=== PATIENT | male | born 1955 | race Caucasian/White ===

== ENCOUNTER 2021-08-09 10:42 | Emergency (ER) | payer MEDICARE, BC, SELFPAY ==
[2021-08-09 11:27] VITALS: BP 153/82; PULSE 59; RESP 16; TEMP 36.1; O2SAT 99; BMI 23.5
--- NOTE | 2021-08-09 12:29 | ED.EYEPROB ---
HPI - Eye Problem General Chief complaint: Eye Problems Stated complaint: DETACHED RETINA Time Seen by Provider: 08/09/21 11:50 Source: patient Mode of arrival: ambulatory Limitations: no limitations History of Present Illness HPI Narrative: Patient does have history of ocular migraine to get floaters during the oral phase started noticing increased floaters in left eye over the 3 days without any significant headache today an hour prior to arrival noticed spider web like floaters in the 3 o'clock position left eye which lasted for 5 minutes without any scintillations or black hole no pain in the left eye at this time patient does not no vision loss Related Data Allergies Allergy/AdvReac Type Severity Reaction Status Date / Time penicillin V Allergy Unknown Verified 06/09/19 00:00 Review of Systems Review of Systems: Yes all other systems are reviewed and are negative [facility] Past Medical History Medical History (Updated 08/09/21 @ 12:30 by Jaxson Nelson MD) Floater, vitreous Ocular migraine Surgical History H/O hernia repair Social History Social History Advance Directives: No Advance Directives Information Provided: No Physical Exam Vital Signs: Vital Signs: Last Vital Signs Temp 97.0 F 08/09/21 11:27 Pulse 59 08/09/21 11:27 Resp 16 08/09/21 11:27 BP 153/82 H 08/09/21 11:27 Pulse Ox 99 08/09/21 11:27 Body Mass Index 23.5 Const: General: cooperative and healthy appearing Eyes: Pupils: Equal, round and reactive pupils present EOM: EOMs intact bilaterally Direct Ophthalmoscopy: normal light reflex, no papilledema, fundi normal bilaterally, anterior chamber normal, No retinal abnormality and No vascular abnormality Resp: Effort & Inspection: normal respiratory effort Auscultation: clear to auscultation bilaterally Cardio: Rate: regular rate Rhythm: regular rhythm Heart sounds: S1 normal heart sound present and S2 normal heart sound present Neuro: Cranial nerves: Yes Equal, round and reactive pupils present MDM - Eye Problem MDM Narrative Medical decision making narrative: Patient's symptoms likely from ocular migraine no signs of retinal detachment was seen patient advised to avoid straining follow with Dr. Rust to report back to the ER if any loss of vision or scintillations around the floaters Procedures Procedure Narrative Procedure Narrative: Ultrasound of both eyes: Normal anterior chamber , lens normal in position normal retina no detachment was seen, pictures were shared with Dr. Rust Discharge Plan Discharge Clinical Impression: Floater, vitreous Qualifiers: Laterality: left Qualified Code(s): H43.392 - Other vitreous opacities, left eye Patient Disposition: Home, Self-Care Instructions: Visual Floaters (ED) Additional Instructions: Do not over strain See Dr. Rust next week as scheduled Report to the ER if in if he notices worsening of floaters with light flashing or increased pain/ blindness
== END 2021-08-09 12:36 | disposition home or self-care (01) ==
PROVIDERS: Emergency Provider Internal Medicine; PCP Internal Medicine
DX: H43.392 Other vitreous opacities, left eye (principal); H33.22 Serous retinal detachment, left eye; Z79.899 Other long term (current) drug therapy
CPT/HCPCS: 99283

== ENCOUNTER 2024-06-27 18:42 | Emergency (ER) | payer MEDICARE, BC, SELFPAY ==
--- NOTE | ~2024-06-27 | US_ITS ---
EXAMINATION: US TRIPLEX LOWER EXTREMITY, RIGHT CLINICAL INFORMATION: Pain COMPARISON: None available. TECHNIQUE: Color-flow triplex imaging with spectral analysis and compression Doppler were performed on the right lower extremity. FINDINGS: Respiratory variation, normal compression and augmented flow are noted throughout the right lower extremity. The visualized common femoral vein, superficial femoral vein, profunda femoral vein, popliteal vein and midcalf peroneal and posterior tibial venous segments show no evidence of deep venous thrombosis. There is no Benitez's cyst. Small 0.7 x 0.3 x 0.4cm lymph node in the thigh. US/US venous duplex LE RT IMPRESSION: No evidence of deep venous thrombosis involving the right lower extremity. Electronically signed by: Jenna Cartwright MD 06/27/2024 07:53 PM EDT
--- NOTE | 2024-06-27 18:51 | ED.GENADULT ---
HPI - General Adult General Stated complaint: blood clot rt leg? Related Data Allergies Allergy/AdvReac Type Severity Reaction Status Date / Time penicillin V Allergy Unknown Unknown Verified 06/27/24 18:53 REPLACED BY [facility] Past Medical History Medical History (Updated 08/10/21 @ 00:01 by Helen Allen) Ocular migraine Floater, vitreous Surgical History H/O hernia repair Course Course Course Narrative: RME, this is a rapid medical exam performed by Louis Garrison please refer to primary provider for complete H&P- 68 year old male presents for evaluation of right calf pain that has since radiated up to the right thigh. He first noticed the pain in the right tamar last night after running around playing soccer. That pain has resolved and is now in the right thigh. Plan for labs and an ultrasound of the right leg Discharge Plan Discharge Print Language: Cuban
[2024-06-27 18:52] VITALS: BP 162/72; PULSE 66; RESP 18; TEMP 36.7; O2SAT 99; BMI 23.2
[2024-06-27 19:11] LABS: Basophils Absolute Auto 0.1 X10*3/uL (0.0-0.2); Basophils Percent Auto 0.8 % (0-2); Hemoglobin 15.8 g/dl (14.0-18.0); Imm Gran Abs Auto 0.02 X10*3/uL (0.00-0.03); Imm Gran Pct Auto 0.3 % (0.0-0.4); MANUAL DIFF FLAG SCAN; Mean Corpuscular HGB Conc 35.7 g/dl (31.0-36.0); Mean Corpuscular Hemoglobin 31.2 pg (27.0-33.0); PLT CLUMP 1; Red Blood Count 5.06 X10*6/uL (4.60-5.80); SCAN SMEAR FLAG 1
[2024-06-27 19:13] LABS: Eosinophils Absolute Auto 0.2 X10*3/uL (0.0-0.4); Eosinophils Percent Auto 3.3 % (0-4); Hematocrit 44.3 % (42.0-52.0); Lymphocytes Absolute Auto 1.8 X10*3/uL (1.2-4.9); Lymphocytes Percent Auto 30.2 % (20-40); Mean Corpuscular Volume 87.5 fL (80.0-98.0); Mean Platelet Volume 8.5 fL (9.4-12.4); Monocytes Absolute Auto 0.4 X10*3/uL (0.1-1.2); Monocytes Percent Auto 7.3 % (2-11); Neutrophils Absolute Auto 3.5 x10*3/uL (2.0-8.3); Neutrophils Percent Auto 58.1 % (45-73)
[2024-06-27 19:35] LABS: Alanine Aminotransferase 27 U/L (0-40); Albumin Level 4.3 g/dL (3.5-5.0); Alkaline Phosphatase 89 U/L (39-117); Anion Gap 11 (12-20); Aspartate Amino Transferase 29 U/L (5-37); Bilirubin Total 0.6 mg/dL (0.0-1.0); Blood Urea Nitrogen 10 mg/dL (9-16); Calcium 9.5 mg/dL (8.4-10.2); Carbon Dioxide 27 mmol/L (22-29); Chloride 107 mmol/L (96-108); Creatinine Clr Calc Pharmacy 74.7; Estimated Glomerular Filt Rate > 60; Glucose Random 102 mg/dL (60-115); Lipase 21 U/L (8-78); Potassium 3.7 mmol/L (3.3-5.1); Sodium 141 mmol/L (135-145); Total Protein 6.9 g/dL (6.5-8.0)
[2024-06-27 20:02] LABS: Platelet Count 166 X10*3/uL (160-400)
[2024-06-27 23:07] LABS: SLIDE REVIEW VERIFIED
== END 2024-06-27 21:59 | disposition left against medical advice (07) ==
PROVIDERS: Physician Assistant; Emergency Provider Emergency Medicine; PCP Physician Assistant
DX: R60.0 Localized edema (principal); Z79.899 Other long term (current) drug therapy
CPT/HCPCS: 36415; 80053; 82550; 83690; 83735; 85025; 93971; 99281

== ENCOUNTER 2025-06-26 10:24 | Day surgery (SDC) | payer MEDICARE, BC, SELFPAY ==
--- OUTSIDE RECORDS SUMMARY | 2025-05-28 09:55 | XMS_ITS ---
Author Organization [facility] Address [address] [place] [address] Care Team Providers Care Housekeeper Nanny Name Role Phone BERNA SMITH M.D. Primary Care Provider Jose Manuel Richards Jr Allergies Allergen (clinical drug ingredient) Drug/Non Drug Allergy documented on EMR Reaction Allergy Type Onset Date Status Sulfa upset stomach Drug Allergy Act devan Penicillin Unknown Drug Allergy Active REASON FOR VISIT Patient presents today for a colon screening Medications Medication SIG (Take, Route, Frequency, Duration) Notes Start Date End Date Status Vitamin B-12 100 MCG as directed Orally Active Fish Oil 1000 MG 1 capsule Orally Thr ee times a day Active Vitamin C 500 MG as directed Orally Active Probiotic 250 MG as directed Orally Active Red Yeast Rice 600 MG as directed Orally Active Fiber 625 MG 2 tablets as needed Orally Three times a day Active Flax Seeds Active Vitamin D-3 25 MCG (1000 UT) 1 capsule Orally Once a day pro Active Immunizations Vaccine Route Administration Date Status Comme nts Influenza Unknown 05/28/2025 Refused Problems Problem Type SNOMED Code ICD Code Onset Dates Problem Status W/U Status Risk Notes Problem Diverticulitis o f large intestine without perforation or abscess without bleeding (K57.32) Active confirmed Vital Signs Temperature 97.8 degrees Fahrenheit 05/28/20 25 Blood pressure systolic 001 mm Hg 05/28/20 25 Blood pressure diastolic 01 mm Hg 025 Height 67 in 05/28/2025 Weight 141 lbs 05/28/2025 BMI 22.08 kg/m2 05/28/2025 Encounters Encounter Location Date Provider Diagnosis [facility] [address] [place] [address] 05/28/2025 Jose Manuel Carmen Jr Diverticulitis of large intestine without perforation or abscess without bleeding K57.32 Assessments Encounter Date Diagnosis (ICD Code) Assessment Notes Treatment Notes Treatment Clinical Notes Section Notes 05/28/2025 Diverticulitis of large intestine without perforation or abscess without bleeding (ICD-10 - K57.32) We discussed diverticulitis today. We discussed further evaluation with colonoscopy. We discussed a high-fiber diet. He is encouraged to follow this. We discussed indications for antibiotics today. He is advised to call with recurrent symptoms. We will arrange for colonoscopy at his convenience. Examination of his left inguinal area did not reveal definite area of recurrent hernia. We will review his CT scan and if he has recurrent symptoms, surgical referral will be arranged. He is advised to stop supplements 1 week before the procedure. Plan Of Treatment Future Test Test Name Order Date COLONOSCOPY 05/28/2025 Next Appt Details Follow Up: 1 Year, Reason: Provider Name:Jose Manuel kimble Jr, 06/26/2025 11:40:00 AM, [address] [place] [address], [id number], Progress Notes * JEAN LILLY CDOB:[birth year] (69 yo M)Acc No.[id number]:05/28/2025 Progress Notes Patient: JEAN RAMIREZ Provider: Josh Carmen MD :1955 A ge:69 Y S ex:Male Date:05/28/2025 Address:[address] [place], [place] [id number] Pcp:BERNA SMITH M.D. Subjective: * Chief Complaints: * 1 . Patient presents today for a colon screening. * HPI: N ew symptom(s): Jean is a pleasant 69-year-old man seen today in consultation. He has had 2 episodes of diverticulitis in the last 6 to 8 months. The first 1 required antibiotic treatment and CT scanning was reportedly done confirming the diagnosis. The second episode occurred about 3 months ago and did not require antibiotics and responded to conservative therapy with diet, liquids x 24 to 48 hours. Since that time he has had no recurrence of his diverticulitis. He reports bowel movements are normal, without blood, although he does have some left lower quadrant pain which he thinks may be related to previous hernia surgery for a left inguinal hernia. He has no complaints of a bulge in this area but did have an inguinal hernia repair on the left side about 2013. Previous colonoscopy in January 2017 to the terminal ileum showed sigmoid diverticulosis. We reviewed this today. * ROS: G eneral/Constitutional: Change in appetite d enies. F atigue d enies. ? E NT: Patient denies d ifficulty swallowing. R espiratory: Patient denies s hortness of breath. C ardiovascular: Patient denies c hest pain. G astrointestinal: Comments S [facility] for details. G enitourinary: Difficulty urinating d enies. I ncontinence d enies. M usculoskeletal: Patient denies m uscle aches. S kin: Patient denies p ruritis. N eurologic: Patient denies l ow back pain. P sychiatric: Patient denies m ental or physical abuse. * Medical History: C olonoscopy 01/22, diverticulosis, 10-year follow-up, Arthralgia, Diverticulitis, Hyperlipidemia, Elevated blood pressure. * Surgical History: k nee surgery , tonsillectomy , inguinal hernia repair 10/2014. * Family History: F ather: . M other: . The patient has a positive family history for diverticulosis sister and two brothers living. NO family history of liver cancer or colon cancer. * Social History: T obacco Use: T obacco Use/Smoking P atient is a: nonsmoker. D rugs/Alcohol: A lcohol Screen P oints: 4, Interpretation: Positive. M iscellaneous: M arital status: . Occupation: retired. * Medications: T aking Probiotic 250 MG Capsule as directed Orally , Taking Red Yeast Rice 600 MG Capsule as directed Orally , Taking Fiber 625 MG Tablet 2 tablets as needed Orally Three times a day , Taking Flax Seeds , Taking Vitamin D-3 25 MCG (1000 UT) Capsule 1 capsule Orally Once a day , Notes to Pharmacist: pro, Taking Vitamin C 500 MG Capsule as directed Orally , Taking Vitamin B-12 100 MCG Tablet as directed Orally , Taking Fish Oil 1000 MG Capsule 1 capsule Orally Three times a day , Discontinued Minocycline HCl - for roseasa , Discontinued Colyte with Flavor Packs 240 GM Solution Reconstituted As directed Orally Over the specified time. , Medication List reviewed and reconciled with the patient * Allergies: S ulfa: upset stomach, Penicillin. Objective: * Vitals: W t:141lbs, Ht: 67 in, BMI:22.08Index, BP:001/01mm Hg, Temp:97.8, Wt-k.96. * Examination: G eneral Examination: GENERAL APPEARANCE: i n no acute distress. HEAD: n ormocephalic. EYES: s clera non-icteric. ORAL CAVITY: m ucosa moist. NECK/THYROID: n o lymphadenopathy. SKIN: a nicteric. HEART: S 1, S2 normal, no murmurs. LUNGS: c lear to auscultation bilaterally. CHEST: n ormal shape and expansion. ABDOMEN: s oft, nontender, nondistended, bowel sounds present,no organomegaly. No left inguinal hernia is palpable on provocative maneuvers.. EXTREMITIES: n o clubbing, cyanosis, or edema. PSYCH: c ognitive function intact. Assessment: * Assessment: 1. D iverticulitis of large intestine without perforation or abscess without bleeding - K57.32 (Primary) We discussed diverticulitis today. We discussed further evaluation with colonoscopy. We discussed a high-fiber diet. He is encouraged to follow this. We discussed indications for antibiotics today. He is advised to call with recurrent symptoms. We will arrange for colonoscopy at his convenience. Examination of his left inguinal area did not reveal definite area of recurrent hernia. We will review his CT scan and if he has recurrent symptoms, surgical referral will be arranged. He is advised to stop supplements 1 week before the procedure. Plan: * Treatment: * Immunizations: Influenza (Not administered - Refused: Patient decision) * Procedure Codes: 3 017F COLORECTAL CA SCREEN DOC REV, 1036F TOBACCO NON-USER, G9744 PATIENT NOT ELIG D/T ACTIVE DX HTN * Preventive Medicine: Screenings: F all Risk Screening F all Risk Assessment: N o falls in the past year, S creening: N o falls in the past year, A ssessment: N ot performed, no reason specified, P ann of Care: N ot documented, no reason specified. * Follow Up: 1 Year * * Sign off status: Completed true * Provider: Josh Carmen MD Date: 05/28/2025 Generated for Printi wyatt/Morris/eTransmitting on: 05/29/2025 12:31 PM EDT History and Physical Notes * HPI (History of Present Illness) Category Sub-Category Detail Notes Category Not es New symptom(s) Jean is a pleasant 69-year-old man seen today in consultation. He has had 2 episodes of diverticulitis in the last 6 to 8 months. The first 1 required antibiotic treatment and CT scanning was reportedly done confirming the diagnosis. The second episode occurred about 3 months ago and did not require antibiotics and responded to conservative therapy with diet, liquids x 24 to 48 hours. Since that time he has had no recurrence of his diverticulitis. He reports bowel movements are normal, without blood, although he does have some left lower quadrant pain which he thinks may be related to previous hernia surgery for a left inguinal hernia. He has no complaints of a bulge in this area but did have an inguinal hernia repair on the left side about 2013. Previous colonoscopy in January 2017 to the terminal ileum showed sigmoid diverticulosis. We reviewed this today. Examination Category Sub-Category Detail Notes Category Not es General Examination GENERAL APPEARANCE: in no acute di stress HEAD: normocephalic EYES: sclera non-icteric NECK/THYROID: no lymphadenopathy HEART: S1, S2 normal, no mu rmurs CHEST: normal shape and exp ansion LUNGS: clear to auscultatio n bilaterally ABDOMEN: soft, nontender, non distended, bowel sounds present, no organomegaly. No left inguinal hernia is palpable on provocative maneuvers. SKIN: anicteric EXTREMITIES: no clubbing, cyanosi s, or edema PSYCH: cognitive function i ntact ORAL CAVITY: mucosa moist
--- OUTSIDE RECORDS SUMMARY | 2025-05-29 12:31 | XMS_ITS | Clinical Summary ---
Author Organization [facility] Address [address] [place] [id number] Phone Care Team Providers Care Case Reviewer Name Role Phone Jac Escalante Primary Care Provider [phone] Encounters Date Type Department Care Team Description 04/16/2025 11:14 AM EDT - 04/16/2025 11:59 PM EDT Hospital Encounter [facility] [address] [place] [address] Jac Escalante PA Discharge Disposition: Home or Self Care 04/16/2025 Transcribe Orders [facility] [address] [place] [address] Jac Escalante PA Well adult exam 04/16/2025 Transcribe Orders [facility] [address] [place] [address] Jac Escalante PA Well adult exam; Hyperlipidemia, unspecified hyperlipidemia type; Hypertension, essential from Last 3 Months Social History Tobacco Use Types Packs/Day Years Used Date Smoking Tobacco: Never Assessed Education Answer Date Recorded Are you interested in more education? Not on terrence e 04/16/2025 Are you concerned about learning? Not on file 04/16/2025 No 04/16/2025 No 04/16/2025 Digital Access Answer Date Recorded No 04/16/2025 No 04/16/2025 Reliable internet access at home? Not on file 04/16/2025 Device with a working camera? Not on file Sex and Gender Information Value Date Recorded Sex Assigned at Not on file Legal Sex Male 3:10 PM EDT Gender Identity Not on file Sexual Orientation Not on file Plan of Treatment Not on file Medical Devices Not on file Procedures Procedure Name Priority Date/Time Associated Diagnosis Comments HEMOGLOBIN A1C Routine 04/16/2025 11:29 AM EDT Well adult exam Hyperlipidemia, unspecified hyperlipidemia type Hypertension, essential COMPREHENSIVE METABOLIC PANEL Routine 04/16/2025 11:29 AM EDT Well adult exam Hyperlipidemia, unspecified hyperlipidemia type Hypertension, essential LIPID PANEL Routine 04/16/2025 11:29 AM EDT Well adult exam Hyperlipidemia, unspecified hyperlipidemia type Hypertension, essential 25-OH VITAMIN D Routine 04/16/2025 11:29 AM EDT Well adult exam Hyperlipidemia, unspecified hyperlipidemia type Hypertension, essential PSA (SCREENING) Routine 04/16/2025 11:29 AM EDT Well adult exam CBC AND DIFFERENTIAL Routine 04/16/2025 11:29 AM EDT Well adult exam Hyperlipidemia, unspecified hyperlipidemia type Hypertension, essential from Last 3 Months Results * Comprehensive metabolic panel (04/16/2025 11:29 AM EDT) SODIUM 135 133 - 146 mmol/L [facility] POTASSIUM 4.1 3.3 - 5.1 mmol/L [facility] CHLORIDE 99 96 - 108 mmol/L [facility] CO2 26 21 - 35 mmol/L [facility] BUN 13 6 - 19 mg/dL [facility] CREATININE 0.80 0.5 - 1.5 mg/dL [facility] GLUCOSE 87 70 - 99 mg/dL [facility] ALBUMIN 4.5 3.9 - 4.8 g/dL [facility] TOTAL PROTEIN 7.1 6.5 - 8.0 g/dL [facility] CALCIUM 9.4 8.4 - 10.3 mg/dL [facility] ALKALINE PHOSPHATASE 99 39 - 117 U/L [facility] TOTAL BILIRUBIN 0.6 0.0 - 1.2 mg/dL [facility] AST 24 0 - 37 U/L [facility] ALT 28 0 - 40 U/L [facility] GLOBULIN 2.6 1 - 4.8 g/dL [facility] EGFR 95 >59 mL/min/1.7 3m2 [facility] Comment:Estimated glomerular filtration rate calculated using the CKD-EPI refit equation. ANION GAP 14 10 - 20 mmol/L [facility] Blood 04/16/2025 11:2 9 AM EDT 04/16/2025 11:32 AM EDT us Jac [facility] BLOOD ORDERABLES Final Res ult Performing Organization Address City/[facility]/ZIP Co de Phone Number [address] [address] * 25-OH vitamin D (04/16/2025 11:29 AM EDT) 25 OH VIT D (TOTAL) 51 30 - 60 ng/mL [facility] Blood 04/16/2025 11:2 9 AM EDT 04/16/2025 11:32 AM EDT us Jac [facility] BLOOD ORDERABLES Final Res ult Performing Organization Address City/[facility]/ZIP Co de Phone Number [address] [address] * CBC and differential (04/16/2025 11:29 AM EDT) WBC 6.08 4.00 - 11.00 K/uL [facility] RBC 5.29 4.50 - 5.90 M/uL [facility] HGB 16.1 13.5 - 17.5 g/dL [facility] HCT 47.6 41.0 - 53.0 % [facility] PLT 178 150 - 450 K/uL [facility] MCV 90.0 80.0 - 100.0 fL [facility] MCH 30.4 27.0 - 31.0 pg [facility] MCHC 33.8 32.0 - 36.0 g/dL [facility] RDW 12.4 11.5 - 14.5 % [facility] MPV 9.2 8.4 - 12.0 fL [facility] NRBC 0.00 0.00 /100 WBCs [facility] ABSOLUTE NRBC 0.00 0.00 K/uL [facility] DIFF METHOD Auto [facility] NEUTS 66.6 48.0 - 76.0 % [facility] LYMPHS 22.4 18.0 - 41.0 % [facility] MONOS 7.9 4.0 - 11.0 % [facility] EOS 2.5 0.0 - 5.0 % [facility] BASOS 0.3 0.0 - 1.5 % [facility] Granulocytes, immature (%) 0.3 0.0 - 0.9 % [facility] ABSOLUTE NEUTS 4.05 1.92 - 7.60 K/uL [facility] ABSOLUTE LYMPHS 1.36 0.72 - 4.10 K/uL [facility] ABSOLUTE MONOS 0.48 0.16 - 1.10 K/uL [facility] ABSOLUTE EOS 0.15 0.00 - 0.50 K/uL [facility] ABSOLUTE BASOS 0.02 0.00 - 0.15 K/uL [facility] Granulocytes, immature 0.02 0.00 - 0.09 K/uL [facility] Blood 04/16/2025 11:2 9 AM EDT 04/16/2025 11:32 AM EDT us Jac [facility] BLOOD ORDERABLES Final Res ult [facility] [address] [place], [place] [id number] * PSA (screening) (04/16/2025 11:29 AM EDT) PSA 2.29 0 - 4.00 ng/mL [facility] Comment: Test Methodology Jyoti [id number] Patient results determined by assays using different manufacturers or methods may not be comparable. Blood 04/16/2025 11:2 9 AM EDT 04/16/2025 11:32 AM EDT us Jac [facility] BLOOD ORDERABLES Final Res ult Performing Organization Address City/[facility]/ZIP Co de Phone Number [address] [address] * Hemoglobin A1c (04/16/2025 11:29 AM EDT) HEMOGLOBIN A1C 5.1 4.3 - 5.8 % [facility] Blood 04/16/2025 11:2 9 AM EDT 04/16/2025 11:33 AM EDT us Jac [facility] BLOOD ORDERABLES Final Res ult Performing Organization Address [facility] Co de Phone Number [address] [address] * (ABNORMAL) Lipid panel (04/16/2025 11:29 AM EDT) HDL 43 mg/dL [facility] Comment: Interpretation <40 mg/dL: Low HDL cholesterol (major risk factor for CHD) Greater than or equal to 60 mg/dL: High HDL cholesterol ( negative risk factor for CHD) HDL - cholesterol is affected by a number of factors, e.g. smoking, excerise, hormones, sex and age. CHOLESTEROL 233 0 - 240 mg/dL [facility] TRIGLYCERIDES 116 30 - 160 mg/dL [facility] LDL 167(H) 50 - 129 mg/dL [facility] Comment: LDL levels in terms of risk for coronary heart disease: <100 mg/dL: Optimal 100-129 mg/dL: Near or above optimal 130-159 mg/dL: Borderline high 160-189 mg/dL: High >190 mg/dL: Very High CARDIAC RISK RATIO 5.4(H) 3.4 - 5.0 C [facility] Blood 04/16/2025 11:2 9 AM EDT 04/16/2025 11:33 AM EDT us Jac [facility] BLOOD ORDERABLES Final Res ult Performing Organization Address City/[facility]/ZIP Co de Phone Number [address] [address] from Last 3 Months Insurance MEDICARE PART A & B [facility] MEDICARE PART A & B [facility] MEDICARE PART A & B MEDICARE [facility] A & B [facility] MEDICARE [facility] A & B [facility] MEDICARE PART A & B [facility] [employer] Care Teams Case Reviewer Relationship Specialty Start Date End Date Jac Escalante PA [address] [place] [address] PCP - General Physician Bulking Machine Operator 04/16/25 Additional Source Comments The information contained in this document represents components of the legal health record. It is not the complete legal health record.[facility]
--- OUTSIDE RECORDS SUMMARY | 2025-05-29 12:32 | XMS_ITS | Patient Health Record ---
Author Organization [facility] Address [address] [place] [address] Care Team Providers Care Tapeman Name Role Phone Mic Garcia MD Primary Care Provider Wenceslao Cooper Unavailable [phone] Allergies Allergen (clinical drug ingredient) Drug/Non Drug Allergy documented on EMR Reaction Allergy Type Onset Date Status Penicillin Unknown Drug Allergy Active Reason For Referral No Information Problems Problem Type SNOMED Code ICD Code Onset Dates Problem Status W/U Status Risk Notes Problem Onychomycosis (709357144) Onychomycosis (110.1) Active confirmed Problem Hallux valgus (393276923) Hallux Valgus (735.0) Active confirmed Problem Congenital pes planus (57588956) Flat Foot, Congenital (754.61) Active confirmed Problem Pain in limb (02713997) Pain in Limb (729.5) Active confirmed Plan Of Treatment Pending Test Test Name Order Date X ray : Foot, left 2V 12/07/2012 Insurance Providers Payer Name Payer Address Payer Phone Subscriber Number Group Number Insured Name Patient Relationship to Insured Coverage Start Date Coverage End Date [facility] [address] [place] [address] [id number] Ricky Ledesma Self - patient is the insured Medical (General) History Medical History History ICD Code measles mumps chicken pox Surgical History Surgery Date(Month/Year) knee surgery 1995
--- NOTE | 2025-06-25 13:17 | HO.ANESPROP2 ---
Documented by User: Maritza Tran NP 06/25/25 13:17 HPI - Anesthesia Eval Consult details Narrative: 69 yr old male for colonoscopy PMFSH Past Medical History Medical History Ocular migraine Floater, vitreous Surgical History Surgical History H/O hernia repair Social History Social History Patient Tobacco Use Status: Never used Tobacco Meds Allergies Allergy/AdvReac Type Severity Reaction Status Date / Time penicillin V Allergy Unknown Unknown Verified 06/27/24 18:53 Documented by User: Johanna Art MD 06/26/25 12:54 [facility] Past Medical History Medical History Ocular migraine Floater, vitreous Surgical History Surgical History H/O hernia repair History of Problems with Anesthesia: No Social History Social History Patient Tobacco Use Status: Never used Tobacco Meds Allergies Allergy/AdvReac Type Severity Reaction Status Date / Time penicillin V Allergy Unknown Unknown Verified 06/27/24 18:53 Exam Airway Mallampati Class: III TM Dist: >3cm Neck ROM: Full Loose/Missing/Broken Teeth: No Heart: RRR Lungs: CTA Assessment and Plan Assessment Anesthesia Assessment: Anesthesia Plan Discussed and Chart Reviewed Final Anesthetic Review History of Problems with Anesthesia: No NPO: Yes ASA Class: II Final Preanesthetic Review: Meds/Allgs Chart Reviewed, Consent Obtained/Reviewed and Anes Risks/Benef Reviewed Patient Risk: Low Procedure Risk: Low Anesthetic Plan Anesthetic Plan: MAC: Disposition: Standard PACU
[2025-06-26 10:48] VITALS: BMI 21.5
[2025-06-26 11:01] VITALS: BP 141/75; PULSE 54; RESP 16; TEMP 36.3; O2SAT 97
[2025-06-26] MEDS: Lactated Ringers 1,000 ML 100 ML IVCONT (11:01)
--- NOTE | 2025-06-26 12:31 | MHC.SHP ---
Pre-Procedural Eval Section A - 24 Hr Update-Section A only Date of Service: 06/26/25 The patient is an INPATIENT: No Changes since office visit: No Cold of Flu in the past 2 weeks, No New Medical Problems, No Changes in Medication and No Patient answered all questions The patient has been examined within 24 hours of the surgical procedure. The History & Physical has been completed within 30 days and I have reviewed it.: Yes Section B - Complete if H&P > 30 days Chief Complaint: DIVERTICULITIS Allergies: Allergies Allergy/AdvReac Type Severity Reaction Status Date / Time penicillin V Allergy Unknown Unknown Verified 06/27/24 18:53 Plan I have reviewed the history and physical and performed a pertinent physical examination on my patient. No changes have occurred unless specified. Time Spent With Patient Time: Total time managing care of this patient today ____ minutes.
[2025-06-26 13:07] VITALS: BP 80/48; PULSE 56; RESP 18; TEMP 36.1; O2SAT 99
--- NOTE | 2025-06-26 13:07 | PM.OP ---
Brief Operative Note Date of Service: 06/26/25 Pre-op diagnosis: screening, tics Procedure: colonoscopy Surgeon: Jose Manuel Carmen MD Anesthesia: MAC Was an Data Systems Manager used for this Procedure?: No Estimated blood loss (mL): 2 Condition: stable Disposition: PACU
[2025-06-26 13:22] VITALS: BP 120/71; PULSE 67; RESP 18; TEMP 36.1; O2SAT 98
--- NOTE | 2025-06-26 13:27 | OP_ITS ---
DATE OF SERVICE: 06/26/2025 SURGEON: Jose Manuel Carmen MD INDICATIONS: Colon cancer screening and diverticulitis. PREOPERATIVE DIAGNOSIS: POSTOPERATIVE DIAGNOSIS: PROCEDURE PERFORMED: Colonoscopy to the terminal ileum with biopsy. ESTIMATED BLOOD LOSS: COMPLICATIONS: ANESTHESIA: Monitored anesthesia care. ASSISTANTS: SPECIMENS: DESCRIPTION OF PROCEDURE: A history and physical was performed. The risks and benefits of the procedure were explained to the patient. Informed consent was obtained. The patient was placed in the left lateral decubitus position. A digital rectal exam was performed and was found to be normal. The Olympus pediatric video colonoscope was introduced into the rectum and advanced to the cecum. The cecum was identified by transillumination, palpation, and identification of ileocecal valve. Examination was performed. The scope was removed. He tolerated the procedure well and was taken to recovery area in stable condition. FINDINGS: The terminal ileum was evaluated and appeared normal. The visualized colonic mucosa was normal. The quality of the prep was good. A single polyp was identified and removed using a biopsy forceps. This was located at 65 cm from the anal verge. There was moderate diverticulosis without evidence of diverticulitis. Retroflexed examination showed small to moderate-sized internal hemorrhoids. The quality of the prep was good. IMPRESSION: Colon polyp. RECOMMENDATION: Followup the biopsy results. MD MARQUITA Brice/TOVA / [id number]
== END 2025-06-26 13:57 | disposition home or self-care (01) ==
PROVIDERS: PCP Physician Assistant; Visit Provider Internal Medicine Gastroenterology
PROC: 0DJD8ZZ Inspection of Lower Intestinal Tract, Via Natural or Artificial Opening Endoscopic (ICD-10-PCS; CPT 45378; principal; 2025-06-26 11:50)
DX: Z12.11 Encounter for screening for malignant neoplasm of colon (principal); K63.5 Polyp of colon; K57.30 Diverticulosis of large intestine without perforation or abscess without bleeding; K64.8 Other hemorrhoids; E78.5 Hyperlipidemia, unspecified
CPT/HCPCS: 45380; 88305; J2003; J2704